=== PATIENT | female | born 1995 | race Caucasian/White ===

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

== ENCOUNTER 2017-04-10 12:07 | Emergency (ER) | payer BC ==
[~2017-04-10] VITALS: Ht 160 cm; Wt 54.5 kg
[~2017-04-10 12:07] MED LIST: CONSTULOSE 20G/30ML PO; ORTHO TRI-CYCLE1 TAB PO
[2017-04-10 12:08] VITALS: BP 120/77; PULSE 63; TEMP 98.9
[2017-04-10] MEDS ORDERED: VOLTAREN 75 DR75 MG PO (13:05)
== END 2017-04-10 13:40 | disposition home or self-care (01) ==
LOC: COL.ER 12:07
DX: S09.90XA Unspecified injury of head, initial encounter (principal); S62.606A Fracture of unspecified phalanx of right little finger, initial encounter for closed fracture; S60.512A Abrasion of left hand, initial encounter; S60.511A Abrasion of right hand, initial encounter; S80.212A Abrasion, left knee, initial encounter; S00.81XA Abrasion of other part of head, initial encounter; V28.4XXA Motorcycle driver injured in noncollision transport accident in traffic accident, initial encounter; Y92.410 Unspecified street and highway as the place of occurrence of the external cause